=== PATIENT | female | born 1955 | race Two or more races ===

== ENCOUNTER 2017-08-10 18:59 | Emergency (ER) | payer MEDICARE, MEDICAID ==
[~2017-08-10] VITALS: Ht 157.5 cm; Wt 56.7 kg
--- NOTE | 2017-08-10 19:18 | NUR ---
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 PT IS ALSO C/O VERTIGO X 2 HRS. PT STATED THAT SHE ATE AND THEN 45 MINS LATER FELT SICK.
[2017-08-10] MEDS ORDERED: ONDANSETRON HCL/PF 4 MG/2 ML VIAL ONE (19:27)
[2017-08-10] MEDS ORDERED: MECLIZINE HCL 25 MG TABLET ONE (19:28)
[2017-08-10] MEDS ORDERED: LORAZEPAM INJ 2 MG/ML VIAL ONE (19:28)
[2017-08-10] MEDS ORDERED: MECLIZINE HCL 12.5 MG TABLET PO ONE (19:30)
[2017-08-10] MEDS ORDERED: ONDANSETRON HCL/PF 4 MG/2 ML VIAL IV ONE (19:30)
[2017-08-10] MEDS ORDERED: LORAZEPAM INJ 2 MG/ML VIAL IV ONE (19:30)
--- NOTE | 2017-08-10 19:30 | NUR ---
PT REC'D MEDICATION ORDERED.
[2017-08-10 19:45] LABS: BASOPHILS % (AUTO) 0.4 % (0.0-2.0); EOSINOPHILS % (AUTO) 0.6 % (0.0-6.0); HEMATOCRIT 39 % (33-45); HEMOGLOBIN 13.2 g/dL (11.5-14.8); LYMPHOCYTES # (AUTO) 1.2 /CMM (0.8-4.8); LYMPHOCYTES % (AUTO) 16.4 % (20.0-44.0); MEAN CORPUSCULAR HGB CONC 34 g/dl (31.0-36.0); MEAN CORPUSCULAR VOLUME 86 fL (82-100); MONOCYTES # (AUTO) 0.3 /CMM (0.1-1.30); MONOCYTES % (AUTO) 4.8 % (2.0-12.0); NEUTROPHILS # (AUTO) 5.5 /CMM (1.8-8.9); NEUTROPHILS % (AUTO) 77.8 % (43.0-81.0); PLATELET COUNT (AUTO) 260 /CMM (150-450); RDW COEFFICIENT OF VARIATION 12.4 (11.5-15.0); RED BLOOD CELL COUNT(AUTO) 4.54 MIL/uL (4.0-5.2)
[2017-08-10 19:56] LABS: CALCIUM, SERUM 9.4 mg/dL (8.5-10.1); CREATININE 0.5 mg/dL (0.6-1.3); POTASSIUM 3.6 mmol/L (3.5-5.1)
[2017-08-10 20:02] LABS: ALBUMIN 3.8 g/dL (3.4-5.0); BILIRUBIN,DIRECT 0.1 mg/dL (0.0-0.2); BILIRUBIN,TOTAL 0.4 mg/dL (0.2-1.0); TOTAL PROTEIN, SERUM 7.8 g/dL (6.4-8.2)
[2017-08-10 21:10] LABS: APPEARANCE,URINE Clear (CLEAR); BILIRUBIN,URINE Negative (NEGATIVE); BLOOD, URINE Trace-intact Ery/uL (NEGATIVE); COLOR,URINE Yellow (YELLOW); KETONES,URINE 15 (NEGATIVE); LEUKOCYTE ESTERASE ,URINE Large (NEGATIVE); NITRITE, URINE Negative (NEGATIVE); PROTEIN,URINE Negative (NEGATIVE); UGLUCOSE Negative (NEGATIVE); UROBILINOGEN,URINE 0.2 EU/dL (0.2)
[2017-08-10 21:24] LABS: BACTERIA,URINE None seen /HPF (None Seen); RBC,URINE 0-2 /HPF (0-2); SQUAMOUS EPITHELIAL CELL,UR Few /HPF (None Seen); WBC,URINE 5 /HPF (0-3)
--- NOTE | 2017-08-10 21:35 | NUR ---
IV removed. Catheter intact and site benign. Pressure and 4x4 applied to site. No bleeding noted.Patient discharged to home in stable condition. Written and verbal after care instructions given. Patient verbalizes understanding of instruction AND RX. PT'S DAUGHTER IS DRIVING PT HOME. VSS. NAD NOTED. PT AMBULATED OUT WITH A SLOW STEADY GAIT.
[2017-08-10 21:37] VITALS: BP 128/68
== END 2017-08-10 21:39 | disposition home or self-care (01) ==
LOC: ER 19:04
DX: H81.10 Benign paroxysmal vertigo, unspecified ear (principal); R11.2 Nausea with vomiting, unspecified; I10 Essential (primary) hypertension
CPT/HCPCS: 36415; 70450; 80048; 80076; 81001; 83690; 85025; 96374; 96375; 99285; A4606; J2060; J2405; J8597; 81000-TC; Z7610

== ENCOUNTER 2022-01-19 12:48 | Inpatient (IN) | payer MEDICARE, OTHER ==
[~2022-01-19] VITALS: Ht 162.6 cm; Wt 67.6 kg
--- NOTE | 2022-01-19 12:55 | NUR ---
PT BIBRA FROM HOME C/O R HIP PAIN S/P MECHANICAL TRIP AND FALL OUTSIDE HER HOUSE. NOTED SHORTENING AND EXTERNAL ROTATION, WAS GIVEN 100MCG FENTANYL GIVEN MANAGER BUSINESS INTELLIGENCE. PT STATES HISTORY OF L HIP HIPLACEMENT. GOWNED AND PLACED ON MONITOR. AWAITING MD FAUSTIN.
[2022-01-19] MEDS ORDERED: ONDANSETRON HCL/PF 4 MG/2 ML VIAL IV ONE (14:00)
[2022-01-19] MEDS ORDERED: FENTANYL PF 100MCG/2ML AMPUL IV ONE (14:00)
[2022-01-19] MEDS ORDERED: ONDANSETRON HCL/PF 4 MG/2 ML VIAL ONE ×2 (14:20→20:11)
[2022-01-19] MEDS ORDERED: FENTANYL PF 100MCG/2ML AMPUL ONE (14:21)
--- NOTE | 2022-01-19 14:29 | NUR ---
COVID SWAB DONE AND SENT TO LAB
--- NOTE | 2022-01-19 15:02 | NUR ---
MOVE SHEET SUBMITTED.
--- NOTE | 2022-01-19 15:59 | NUR ---
REJI MORGAN [phone]
[2022-01-19 17:21] LABS: BASOPHILS % (AUTO) 0.1 % (0.0-2.0); HEMATOCRIT 38 % (33-45); HEMOGLOBIN 12.1 g/dL (11.5-14.8); LYMPHOCYTES # (AUTO) 0.9 K/uL (0.8-4.8); LYMPHOCYTES % (AUTO) 7.6 % (20.0-44.0); MEAN CORPUSCULAR HGB CONC 32 g/dl (31.0-36.0); MEAN CORPUSCULAR VOLUME 82 fL (82-100); MONOCYTES # (AUTO) 0.8 K/uL (0.1-1.30); MONOCYTES % (AUTO) 6.9 % (2.0-12.0); NEUTROPHILS # (AUTO) 10.4 K/uL (1.8-8.9); NEUTROPHILS % (AUTO) 85.4 % (43.0-81.0); PLATELET COUNT (AUTO) 364 K/uL (150-450); RED BLOOD CELL COUNT(AUTO) 4.55 MIL/uL (4.0-5.2); WHITE BLOOD COUNT (AUTO) 12.2 K/uL (4.3-11.0)
[2022-01-19 17:28] LABS: CALCIUM, SERUM 8.8 mg/dL (8.5-10.1); CREATININE 0.6 mg/dL (0.6-1.3); POTASSIUM 3.8 mmol/L (3.5-5.1)
[2022-01-19] MEDS ORDERED: MAG HYDROX/AL HYDROX/SIMETH 30 ML UDC PO PRN (18:30)
[2022-01-19] MEDS ORDERED: ZOLPIDEM TARTRATE 5 MG TABLET PO PRN (18:30)
[2022-01-19] MEDS ORDERED: Z GUARD REMEDY 4 OZ OINT TP PRN (18:30)
[2022-01-19] MEDS ORDERED: MAGNESIUM HYDROXIDE 30 ML UDC PO PRN (18:30)
[2022-01-19] MEDS ORDERED: ACETAMINOPHEN 325 MG TABLET PO PRN (18:30)
[2022-01-19] MEDS ORDERED: ENOXAPARIN SODIUM 40 MG/0.4 ML DISP.SYRIN SQ SCH (19:00)
[2022-01-19] MEDS ORDERED: KETOROLAC TROMETHAMINE INJ 30 MG/ML VIAL IM PRN (19:30)
--- NOTE | 2022-01-19 19:45 | NUR ---
RECEIVED PT IN ER BED 3. PT IS ALERT AND ORIENTED. RR EVEN AND NONLABORED. CONNECTED TO POX AND HEART MONITOR. FALL PRECAUTIONS IN PLACE. DAUGHTER AT BEDSIDE. PT ADMITS TO PAIN, WILL GIVE PRN MEDS. PT EDUCATED ON NPO STATUS AT MIDNIGHT. WILL CONTINUE TO MONITOR.
[2022-01-19] MEDS ORDERED: KETOROLAC TROMETHAMINE INJ 30 MG/ML VIAL ONE (19:46)
[2022-01-19] MEDS ORDERED: ENOXAPARIN SODIUM 40 MG/0.4 ML DISP.SYRIN SQ ONE (19:46)
[2022-01-19] MEDS: KETOROLAC TROMETHAMINE INJ 30 MG/ML VIAL IV PRN (19:55)
[2022-01-19] MEDS: ONDANSETRON HCL/PF 4 MG/2 ML VIAL IVP PRN (20:14)
--- NOTE | 2022-01-19 20:50 | NUR ---
ROOM 310-1
--- NOTE | 2022-01-19 21:11 | NUR ---
REPORT GIVEN TO TABATHA THORNTON FOR JUNE
[2022-01-19 21:30] VITALS: BP 116/58
--- NOTE | 2022-01-19 21:30 | NUR ---
MARCO HAWK MIS[employer]LE [employer] ARTILLERY NOTES RECEIVED FROM ER THIS 66 YO FEMALE PER ALVARO,WITH CHIEF COMPLAINTS OF RIGHT HIP PAIN,S/P FALL AT HOME.ALERT,ORIENTED X4,DANISH,ABLE TO SPEAK AND UNDERSTAND ICELANDIC.SALINE LOCK LEFT HAND INTACT AND PATENT.IN SO MUCH PAIN WHEN TRIED TO REPOSITION TO TAKE OUT OLD BLANKET.REFUSED ANYWAY TO BE TURN TO SIDES.WITH BALDERAS CATH IN PLACE INSERTED IN ER,DRAINS WELL WITH CLEAR YELLOW URINE OUTPUT.INSTRUCTED NPO POST MIDNIGHT FOR PLAN SURGERY IN THE MORNING.CALL LIGHT IN REACH,NEEDS ANTICIPATED.
[2022-01-20] MEDS: KETOROLAC TROMETHAMINE INJ 30 MG/ML VIAL IV PRN ×4 (02:25→23:14)
--- NOTE | 2022-01-20 02:25 | NUR ---
MS RN NOTES PAIN MANAGEMENT HAVING STRONG PAIN ON RIGHT HIP 8/10 ON PAIN SCALE,MOANS WITH FACIAL GRIMACE NOTED.TORADOL 30MG IV GIVEN ORDERED.VITAL SIGNS STABLE.
[2022-01-20 06:32] LABS: BASOPHILS % (AUTO) 0.3 % (0.0-2.0); EOSINOPHILS % (AUTO) 0.7 % (0.0-6.0); HEMATOCRIT 36 % (33-45); HEMOGLOBIN 11.7 g/dL (11.5-14.8); LYMPHOCYTES # (AUTO) 0.9 K/uL (0.8-4.8); LYMPHOCYTES % (AUTO) 11.3 % (20.0-44.0); MEAN CORPUSCULAR HGB CONC 32 g/dl (31.0-36.0); MEAN CORPUSCULAR VOLUME 84 fL (82-100); MONOCYTES # (AUTO) 0.8 K/uL (0.1-1.30); MONOCYTES % (AUTO) 9.3 % (2.0-12.0); NEUTROPHILS # (AUTO) 6.3 K/uL (1.8-8.9); NEUTROPHILS % (AUTO) 78.4 % (43.0-81.0); PLATELET COUNT (AUTO) 288 K/uL (150-450); WHITE BLOOD COUNT (AUTO) 8.1 K/uL (4.3-11.0)
--- NOTE | 2022-01-20 06:39 | NUR ---
MS RN NOTES FAIRLY RESTED AT NIGHT.KEPT NPO POST MIDNIGHT, POSSIBLE SURGERY TO DAY.CALL LIGHT IN REACH NEEDS ATTENDED..
[2022-01-20 06:48] LABS: CALCIUM, SERUM 8.1 mg/dL (8.5-10.1); CREATININE 0.7 mg/dL (0.6-1.3); MAGNESIUM 2.5 mg/dL (1.8-2.4); PHOSPHORUS 3.4 mg/dL (2.5-4.9); POTASSIUM 3.9 mmol/L (3.5-5.1)
[2022-01-20] MEDS: PANTOPRAZOLE 40 MG TABLET.DR PO SCH (07:30)
[2022-01-20 08:00] VITALS: BP 124/67
--- NOTE | 2022-01-20 08:00 | NUR ---
RN OPENING NOTE RECEIVED PATIENT IN BED, AO X 4. ABLE TO RESPONDS PHYSICAL STIMULI. RESPIRATORY EVEN AND UNLABORED ROOM AIR. PATIENT KEPT NPO FOR PROCEDURE. IN NO ACUTE DISTRESS OBSERVED. SKIN IS WARM TO TOUCH, KEEP CLEAN/DRY. KEPT ELEVATED HOB FOR ASPIRATION PRECAUTION/ENSURE AIRWAY, AND LOWEST BED POSITIONED. BED ALARM IS ON AT ALL THE TIME FOR SAFETY. CALL LIGHT WITHIN REACH, WILL CONTINUE TO MONITOR.
[2022-01-20] MEDS: HYDROCODONE/APAP 5/325MG TABLET PO PRN (09:49)
--- NOTE | 2022-01-20 09:49 | NUR ---
Patient refused narco, which is opened already, will discard in pharmaceutical bottle.
--- NOTE | 2022-01-20 09:59 | NUR ---
received call from pt's daughter Sosa. She wants to talk to Dr. Mendoza. Stating that mother has history of DVT and asking to inform . informed and provided with Dorina phone number to call her.
--- NOTE | 2022-01-20 15:51 | NUR ---
PATIENT C/D STOMACH DISCOMFORT DUE TO GAS, NEW ORDER SIMETHICONE 80MG TID PRN, NOTED AND CARRY OUT.
[2022-01-20 16:00] VITALS: BP 122/66
[2022-01-20] MEDS ORDERED: SIMETHICONE 80 MG TAB.CHEW PO PRN (16:00)
--- NOTE | 2022-01-20 18:00 | NUR ---
RN CLOSING NOTE PATIENT RESTING IN BED. IN NO ACUTE DISTRESS OBSERVED. RESPIRATORY EVEN AND UNLABORED ON ROOM AIR. SKIN IS WARM TO TOUCH KEEP CLEAN/DRY. KEPT ELEVATED HOB FOR ENSURE AIRWAY/ASPIRATION PRECAUTION, AND LOWEST BED POSITION. BED ALARM IS ON AT ALL THE TIME FOR SAFETY. GIVEN PAIN TRAMADOL FOR PAIN AND NO FURTHER C/O PAIN NOTICED. CALL LIGHT WITHIN REACH, WILL ENDORSE MASTER BREWER.
[2022-01-20 20:00] VITALS: BP 114/63
--- NOTE | 2022-01-20 20:00 | NUR ---
RN OPENING NOTE RECEIVED PATIENT IN BED, AO X 4. ABLE TO RESPONDS PHYSICAL STIMULI. RESPIRATORY EVEN AND UNLABORED AT ROOM AIR. FOR SURGERY TOMORROW. INSTRUCTED NPO STATUS PAST 12MN ORDERED. IN NO ACUTE DISTRESS OBSERVED. SKIN IS WARM TO TOUCH, KEEP CLEAN/DRY. KEPT ELEVATED HOB FOR ASPIRATION PRECAUTION/ENSURE AIRWAY, AND LOWEST BED POSITIONED. BED ALARM IS ON AT ALL THE TIME FOR SAFETY. CALL LIGHT WITHIN REACH, WILL CONTINUE TO MONITOR.
[2022-01-20] MEDS: MORPHINE SULFATE INJ 2 MG/ML DISP.SYRIN IV PRN (22:16)
--- NOTE | 2022-01-20 22:26 | NUR ---
RN NOTES - PATIENT REFUSED MORPHINE IV. MED ALREADY PREPARED, WASTED WITNESSED BY NORBERTO CEBALLOS.
--- NOTE | 2022-01-20 22:50 | NUR ---
RN NOTES - PATIENT IS NAUSEOUS. OFFERED ICE CHIPS. GIVEN ZOFRAN IV PRN ORDERED. KEPT COMFORTABLE. WILL CONTINUE TO MONITOR.
[2022-01-20] MEDS: ONDANSETRON HCL/PF 4 MG/2 ML VIAL IVP PRN (22:51)
[2022-01-20] MEDS ORDERED: KETOROLAC TROMETHAMINE INJ 30 MG/ML VIAL IV PRN (23:00)
--- NOTE | 2022-01-20 23:00 | NUR ---
RN NOTES - RECEIVED PHONE ORDER BY MEIR HOSKINS FOR KETOROLAC 15MG IV Q8 PRN
[2022-01-21] MEDS: KETOROLAC TROMETHAMINE INJ 30 MG/ML VIAL IV PRN (06:56)
[2022-01-21 06:59] LABS: CALCIUM, SERUM 8.4 mg/dL (8.5-10.1); CREATININE 0.7 mg/dL (0.6-1.3); MAGNESIUM 2.3 mg/dL (1.8-2.4); POTASSIUM 3.8 mmol/L (3.5-5.1)
--- NOTE | 2022-01-21 07:01 | NUR ---
RN CLOSING NOTE PATIENT RESTING IN BED. IN NO ACUTE DISTRESS OBSERVED. RESPIRATORY EVEN AND UNLABORED ON ROOM AIR. SKIN IS WARM TO TOUCH KEEP CLEAN/DRY. KEPT ELEVATED HOB FOR ENSURE AIRWAY/ASPIRATION PRECAUTION, AND LOWEST BED POSITION. BED ALARM IS ON AT ALL THE TIME FOR SAFETY. GIVEN PAIN TORADOL FOR PAIN AND NO FURTHER C/O PAIN NOTICED. CALL LIGHT WITHIN REACH, WILL ENDORSE GAS LINE INSTALLER.
[2022-01-21 07:03] LABS: BASOPHILS % (AUTO) 0.5 % (0.0-2.0); EOSINOPHILS % (AUTO) 0.8 % (0.0-6.0); HEMATOCRIT 36 % (33-45); HEMOGLOBIN 11.7 g/dL (11.5-14.8); LYMPHOCYTES # (AUTO) 1.1 K/uL (0.8-4.8); LYMPHOCYTES % (AUTO) 12.3 % (20.0-44.0); MEAN CORPUSCULAR HGB CONC 33 g/dl (31.0-36.0); MEAN CORPUSCULAR VOLUME 82 fL (82-100); MONOCYTES # (AUTO) 0.9 K/uL (0.1-1.30); MONOCYTES % (AUTO) 9.7 % (2.0-12.0); NEUTROPHILS # (AUTO) 6.9 K/uL (1.8-8.9); NEUTROPHILS % (AUTO) 76.7 % (43.0-81.0); PLATELET COUNT (AUTO) 363 K/uL (150-450); RED BLOOD CELL COUNT(AUTO) 4.33 MIL/uL (4.0-5.2)
[2022-01-21] MEDS: PANTOPRAZOLE 40 MG TABLET.DR PO SCH (07:30)
[2022-01-21 08:00] VITALS: BP 113/58
--- NOTE | 2022-01-21 08:16 | NUR ---
RN NOTES RECEVIED PATIENT ASLEEP IN BED A&O X 4, PT IS NPO FOR SURGERY PHARMACY INTAKE COORDINATOR AT 12 NOON & SCHEDULED AT 1300 , HOLDING ON PO MEDS AT THIS TIME, NO SOB, NO ACUTE DISTRESS NOTED, RESPIRATORY IS EVEN, UNLABORED, PT ON ROOM AIR, SKIN KEPT CLEAN DRY, AND IS WARM TO TOUCH, BED ELEVATED HOB TO ENSURE AIRWAY & PREVENT ANY ASPIRATION , BED IN LOW POSITION & ALLWHEELS LOCKED. BED ALARM ON, CALL LIGHT WITHIN REACH.
[2022-01-21] MEDS ORDERED: FENTANYL PF 100MCG/2ML AMPUL ONE ×3 (08:54→15:02)
[2022-01-21] MEDS ORDERED: MIDAZOLAM HCL 2 MG/2ML VIAL ONE (08:55)
[2022-01-21] MEDS ORDERED: ROCURONIUM BROMIDE 50 MG/5 ML ONE (08:56)
[2022-01-21] MEDS ORDERED: FAMOTIDINE/PF INJ 20 MG/2 ML VIAL IV ONE (08:56)
[2022-01-21] MEDS ORDERED: POLYMYXIN B SULFATE 500,000 UNITS ONE (09:13)
[2022-01-21] MEDS ORDERED: BUPIVACAINE 0.25% 75 MG/30 ML VIAL ONE (09:13)
[2022-01-21] MEDS ORDERED: BUPIVACAINE 0.5 % PF 150 MG/30 ML VIAL ONE (09:13)
[2022-01-21] MEDS ORDERED: GLYCOPYRROLATE 0.2 MG/ML VIAL ONE (12:53)
[2022-01-21] MEDS ORDERED: TRANEXAMIC ACID 3,000 MG in SODIUM CHLORIDE IRRIG SOLUTION 70 ML IR ONE (13:00)
[2022-01-21] MEDS ORDERED: MEPERIDINE25 MG SYR 25 MG/ML VIAL ONE (14:58)
[2022-01-21] MEDS ORDERED: NEOSTIGMINE METHYLSULFATE INJ 1 MG/ML VIAL ONE (15:03)
[2022-01-21] MEDS ORDERED: ONDANSETRON HCL/PF 4 MG/2 ML VIAL ONE (15:04)
[2022-01-21 16:05] VITALS: BP 116/62
--- NOTE | 2022-01-21 16:05 | NUR ---
RN NOTES PT TRANSFERRED TO SURGERY AT 1215 PM, WILL BE TRANSFERRED BACK TO ROOM SOON FOR POST SURGERY TREATMENT, OBSERVATION, AND CARE. NO NEW ORDERS RECEIVED AT THIS TIME WILL BE MONITORING PT AND FOLLOWING UP WITH ANY NEW ORDERS .
[2022-01-21] MEDS: HYDROCODONE/APAP 5/325MG TABLET PO PRN (17:16)
[2022-01-21] MEDS: DOCUSATE SODIUM 100 MG CAPSULE PO SCH (17:16)
--- NOTE | 2022-01-21 17:22 | NUR ---
RN NOTES PT C/O PAIN, FAMILY MEMBER INTERVENED TO RECEIVE PAIN MEDICATION FOR PAIN, TYLER ON NW SIDE WAS OUT OF MORPHINE SO PULLED HYDROCODONE FOR PAIN PO LEVEL 7 AT THE TIME, SCANNED MEDICATION OF HYDROCODONE AND DOCUSATE SODIUM AND THEN TOOK TO ROOM AND PT DECIDED TO REFUSE AND IS NOW REQUESTING IV PUSH OF MORPHINE AT THIS TIME THERE FORE THE PAIN MEDICATIONS ARE NOW RETURNED FOR PT REFUSING TO TAKE MEDICATIONS AT THIS TIME.
[2022-01-21] MEDS: MORPHINE SULFATE INJ 2 MG/ML DISP.SYRIN IV PRN (18:18)
[2022-01-21] MEDS: ONDANSETRON HCL/PF 4 MG/2 ML VIAL IVP PRN (18:18)
[2022-01-21 20:00] VITALS: BP 102/64
--- NOTE | 2022-01-21 20:00 | NUR ---
RN OPENING NOTE RECEIVED PATIENT AWAKE IN BED, AO X 4. ABLE TO RESPONDS PHYSICAL STIMULI. RESPIRATORY EVEN AND UNLABORED AT ROOM AIR. IN NO ACUTE DISTRESS OBSERVED. SKIN IS WARM TO TOUCH, KEEP CLEAN/DRY. KEPT ELEVATED HOB FOR ASPIRATION PRECAUTION/ENSURE AIRWAY, AND LOWEST BED POSITIONED. BED ALARM IS ON AT ALL THE TIME FOR SAFETY. CALL LIGHT WITHIN REACH, WILL CONTINUE TO MONITOR.
[2022-01-21] MEDS: CEFAZOLIN 2 GM in IV D5W 100 ML IV SCH (21:30)
[2022-01-22] MEDS: CEFAZOLIN 2 GM in IV D5W 100 ML IV SCH ×2 (05:05→13:19)
[2022-01-22 06:52] LABS: HEMATOCRIT 32 % (33-45); HEMOGLOBIN 10.1 g/dL (11.5-14.8); LYMPHOCYTES # (AUTO) 0.6 K/uL (0.8-4.8); LYMPHOCYTES % (AUTO) 3.5 % (20.0-44.0); MEAN CORPUSCULAR HGB CONC 32 g/dl (31.0-36.0); MEAN CORPUSCULAR VOLUME 83 fL (82-100); MONOCYTES # (AUTO) 1.2 K/uL (0.1-1.30); MONOCYTES % (AUTO) 6.2 % (2.0-12.0); NEUTROPHILS # (AUTO) 16.8 K/uL (1.8-8.9); NEUTROPHILS % (AUTO) 90.3 % (43.0-81.0); PLATELET COUNT (AUTO) 312 K/uL (150-450); RED BLOOD CELL COUNT(AUTO) 3.83 MIL/uL (4.0-5.2); WHITE BLOOD COUNT (AUTO) 18.6 K/uL (4.3-11.0)
--- NOTE | 2022-01-22 06:59 | NUR ---
RN CLOSING NOTE PATIENT RESTING IN BED. IN NO ACUTE DISTRESS OBSERVED. RESPIRATORY EVEN AND UNLABORED ON ROOM AIR. SKIN IS WARM TO TOUCH KEEP CLEAN/DRY. KEPT ELEVATED HOB FOR ENSURE AIRWAY/ASPIRATION PRECAUTION, AND LOWEST BED POSITION. BED ALARM IS ON AT ALL THE TIME FOR SAFETY. CALL LIGHT WITHIN REACH, WILL ENDORSE TO DAY SHIFT FOR JUNE.
--- NOTE | 2022-01-22 07:26 | NUR ---
MS RN OPENING NOTE RECEIVED PT AWAKE AND RESTING IN BED. PT A/O X4, ABLE TO MAKE NEEDS KNOWN. ON ROOM AIR, TOLERATING WELL. NO SOB NOTED. NOT IN ANY SIGN OF RESPIRATORY DISTRESS. IV ACCESS ON LEFT HAND G#20, INTACT AND PATENT. SAFETY MEASURES IN PLACE: BED IN LOWEST AND LOCKED POSITION, SIDE RAILS UPX2, BED ALARM ON, AND CALL LIGHT WITHIN REACH. WILL CONTINUE TO MONITOR PT.
[2022-01-22 07:27] LABS: CALCIUM, SERUM 7.3 mg/dL (8.5-10.1); MAGNESIUM 1.9 mg/dL (1.8-2.4); PHOSPHORUS 3.7 mg/dL (2.5-4.9); POTASSIUM 3.9 mmol/L (3.5-5.1)
[2022-01-22 08:00] VITALS: BP 96/55
[2022-01-22] MEDS: PANTOPRAZOLE 40 MG TABLET.DR PO SCH (08:27)
[2022-01-22] MEDS: DOCUSATE SODIUM 100 MG CAPSULE PO SCH ×2 (09:08→16:57)
[2022-01-22] MEDS: ENOXAPARIN SODIUM 40 MG/0.4 ML DISP.SYRIN SQ SCH (09:11)
--- NOTE | 2022-01-22 09:11 | NUR ---
RN NOTE PT C/O RIGHT HIP PAIN WITH PAIN SCALE LEVEL OF 8/10 AND REQUESTED FOR TYLENOL. PT REFUSED A STRONGER PAIN MEDICATION AT THIS TIME. TYLENOL 650MG PO GIVEN ORDERED PRN Q6HRS. WILL MONITOR AND REASSESS PT.
[2022-01-22] MEDS: KETOROLAC TROMETHAMINE INJ 30 MG/ML VIAL IV PRN ×2 (13:42→21:58)
--- NOTE | 2022-01-22 13:44 | NUR ---
RN NOTE PT C/O RIGHT HIP PAIN WITH PAIN SCALE LEVEL OF 8/10 AND REQUESTED FOR TORADOL. TORADOL 15MG IVP GIVEN ORDERED PRN Q8HRS FOR SEVERE PAIN. WILL MONITOR AND REASSESS PT.
[2022-01-22 16:00] VITALS: BP 97/52
--- NOTE | 2022-01-22 18:58 | NUR ---
MS RN CLOSING NOTE PT AWAKE AND RESTING IN BED. PT A/O X4, ABLE TO MAKE NEEDS KNOWN. ON ROOM AIR, TOLERATING WELL. NO SOB NOTED. NOT IN ANY SIGN OF RESPIRATORY DISTRESS. IV ACCESS ON LEFT HAND G#20, INTACT AND PATENT. S/P RIGHT HIP HEMIARTHROPLASTY, DRESSING C/D/I WITH NO ACTIVE BLEEDING NOTED AT THIS TIME. ICE PACK IN PLACE. ALL NEEDS ATTENDED. KEPT CLEAN AND COMFORTABLE AT ALL TIMES. SAFETY MEASURES IN PLACE: BED IN LOWEST AND LOCKED POSITION, SIDE RAILS UPX2, BED ALARM ON, AND CALL LIGHT WITHIN REACH. WILL ENDORSE TO PEDIATRIC UROLOGIST NURSE FOR JUNE.
--- NOTE | 2022-01-22 19:30 | NUR ---
RN OPENING NOTE RECEIVED PATIENT AWAKE IN BED, AO X 4 .AT ROOM AIR. RESPIRATION EVEN AND UNLABORED.NO DISTRESS NOTED. ABLE TO MAKE NEEDS KNOWN. ALL SAFETY MEASURES IN PLACE. BED LOCKED AND IN THE LOWEST POSITION. BED ALARM IS ON AT ALL THE TIME FOR SAFETY. CALL LIGHT AND TABLE WITHIN EASY REACH, WILL CONTINUE TO MONITOR CLOSELY.
[2022-01-22 20:00] VITALS: BP 104/55
[2022-01-23 06:20] LABS: BASOPHILS % (AUTO) 0.4 % (0.0-2.0); EOSINOPHILS % (AUTO) 1.1 % (0.0-6.0); HEMATOCRIT 30 % (33-45); HEMOGLOBIN 9.8 g/dL (11.5-14.8); LYMPHOCYTES # (AUTO) 1.1 K/uL (0.8-4.8); LYMPHOCYTES % (AUTO) 9.4 % (20.0-44.0); MEAN CORPUSCULAR HGB CONC 33 g/dl (31.0-36.0); MEAN CORPUSCULAR VOLUME 82 fL (82-100); MONOCYTES # (AUTO) 1.1 K/uL (0.1-1.30); MONOCYTES % (AUTO) 9.3 % (2.0-12.0); NEUTROPHILS # (AUTO) 9.6 K/uL (1.8-8.9); NEUTROPHILS % (AUTO) 79.8 % (43.0-81.0); PLATELET COUNT (AUTO) 252 K/uL (150-450); RED BLOOD CELL COUNT(AUTO) 3.64 MIL/uL (4.0-5.2)
[2022-01-23] MEDS: KETOROLAC TROMETHAMINE INJ 30 MG/ML VIAL IV PRN (06:23)
[2022-01-23 06:45] LABS: ALBUMIN 2.2 g/dL (3.4-5.0); BILIRUBIN,TOTAL 0.4 mg/dL (0.2-1.0); CREATININE 0.7 mg/dL (0.6-1.3); MAGNESIUM 2.3 mg/dL (1.8-2.4); PHOSPHORUS 1.6 mg/dL (2.5-4.9); POTASSIUM 3.5 mmol/L (3.5-5.1); TOTAL PROTEIN, SERUM 6.3 g/dL (6.4-8.2)
--- NOTE | 2022-01-23 06:48 | NUR ---
MS RN CLOSING NOTE PATIENT AWAKE IN BED, AO X 4 .AT ROOM AIR. RESPIRATION EVEN AND UNLABORED.NO DISTRESS NOTED. ABLE TO MAKE NEEDS KNOWN. RIGHT HIP PAIN NOTED. TORADOL GIVEN FOR PAIN AT 0623 . ALL SAFETY MEASURES IN PLACE. BED LOCKED AND IN THE LOWEST POSITION. BED ALARM IS ON AT ALL THE TIME FOR SAFETY. CALL LIGHT AND TABLE WITHIN EASY REACH, WILL ENDORSE FOR JUNE.
[2022-01-23 07:00] VITALS: BP 124/64
[2022-01-23] MEDS: PANTOPRAZOLE 40 MG TABLET.DR PO SCH (09:53)
[2022-01-23] MEDS: ENOXAPARIN SODIUM 40 MG/0.4 ML DISP.SYRIN SQ SCH (09:55)
[2022-01-23] MEDS: MORPHINE SULFATE INJ 2 MG/ML DISP.SYRIN IV PRN (09:56)
[2022-01-23] MEDS: DOCUSATE SODIUM 100 MG CAPSULE PO SCH ×2 (09:58→17:00)
[2022-01-23] MEDS ORDERED: Hydrocodone/Apap 5/325MG PO (13:22)
[2022-01-23] MEDS ORDERED: ENOX40DI SQ (13:22)
[2022-01-23] MEDS ORDERED: POLY17PO4 PO (13:22)
[2022-01-23] MEDS ORDERED: RING10003 IR (13:25)
[2022-01-23] MEDS ORDERED: IV LR 1000 ML 1,000 ML IV PRN (13:30)
[2022-01-23] MEDS ORDERED: MAGNESIUM CITRATE 296 ML BOTTLE PO ONE (13:30)
[2022-01-23] MEDS ORDERED: NEUTRA PHOS 1 POWD.PACKET PO SCH (14:00)
[2022-01-23] MEDS ORDERED: POLYETHYLENE GLYCOL 3350 17 GM POWD.PACK PO ONE (14:00)
[2022-01-23 16:00] VITALS: BP 119/66
[2022-01-23] MEDS ORDERED: ONDANSETRON HCL 4 MG/5 ML SOLUTION PO ONE ×2 (17:30)
[2022-01-23] MEDS ORDERED: TRAMADOL HCL 50 MG TABLET PO ONE (17:30)
[2022-01-23] MEDS ORDERED: ONDANSETRON 4 MG TAB.RAPDIS PO PRN (18:00)
--- NOTE | 2022-01-23 20:52 | NUR ---
PT DISCHARGED VIA EMS IN STABLE CONDITION. VSS. IV REMOVED TIP INTACT. DISCHARGE INSTRUCTIONS EXPLAINED AND PATIENT AND FAMILY VERBALIZED UNDERSTNDING.
== END 2022-01-23 19:45 | DRG 522 ==
LOC: ER 13:00 → TRANSITION 18:45 → MED 21:01
PROVIDERS: ADMIT Student in an Organized Health Care Education/Training Program; ATTEND Nurse Practitioner Family
PROC: 0SRR0JZ Replacement of Right Hip Joint, Femoral Surface with Synthetic Substitute, Open Approach (ICD-10-PCS; principal; 2022-01-21)
DX: S72.001A Fracture of unspecified part of neck of right femur, initial encounter for closed fracture (principal); W01.0XXA Fall on same level from slipping, tripping and stumbling without subsequent striking against object, initial encounter; Z86.718 Personal history of other venous thrombosis and embolism; Z20.822 Contact with and (suspected) exposure to COVID-19; Z96.642 Presence of left artificial hip joint; Y92.007 Garden or yard of unspecified non-institutional (private) residence as the place of occurrence of the external cause; I10 Essential (primary) hypertension; D72.829 Elevated white blood cell count, unspecified; R74.01 Elevation of levels of liver transaminase levels; J45.909 Unspecified asthma, uncomplicated
CPT/HCPCS: 36415; 71045-TC; 73501; 73502; 76700-TC; 80048-TC; 80053-TC; 83735-TC; 84100-TC; 85025-TC; 85730-TC; 86850-TC; 87081-TC; 93307-TC; 93970-TC; 97110-TC; 97116-TC; 97530-TC; A4217; A6209; C1776; C9803; G0378; J0690; J1650; J1885; J2175; J2250; J2270; J2405; J2704; J2765; J3010; J3490; J7030; J7050; J7060; J7120; Q0162